=== PATIENT | female | born 1995 | race Caucasian/White ===

== ENCOUNTER 2018-11-24 15:24 | Outpatient (CLI) | payer SELFPAY ==
[~2018-11-24] VITALS: Ht 165.1 cm; Wt 79.4 kg
[2018-11-24 16:00] VITALS: BP 117/70; Ht 165.1 cm; Wt 79.4 kg
[2018-11-24] MEDS ORDERED: PROM-110 PO (16:46)
[2018-11-24 17:34] LABS: PLATELET COUNT, AUTOMATED 254 K/uL (150-450)
[2018-11-24] MEDS ORDERED: ONDANSETRON 4 MG ODT TABDP SL ONE (17:40)
[2018-11-24] MEDS: LR(*) 1000 ML BAG 1,000 ML IV PRN ×2 (17:52→18:31)
--- NOTE | 2018-11-24 17:54 | History & Physical ---
History of Present Illness Age of Patient: 23 : 3 Para or TPAL: 2 Estimated Gestational Age: 29.5 History of Present Illness Pt is a 23 year old here today for complaints of nausea and vomiting x 2 weeks. Her care has been in [place], but she said that they said that nothing was wrong with her and she disagrees with them. She also reports that she went to [place] to the ER 2 days ago and she was sent to the L&D unit for evaluation. They checked her cervical length which was apparently good, and gave her IVF and Phenergan. Her sister and fiance are with her. Her other 2 kids are in foster care. She recently had her glucose test at 28wk and she states she does not have GDM. She says that if she eats small meals she does not vomit, only when she eats large meals. She reports good FM, no VB or LOF, except on she had a gush of fluid in the shower and no continued leaking. She was checked in clinic with amnisure and it was negative. She denies JOE, vision changes, or RUQ pain. She complains of pelvic pressure and discomfort as well as lower back pain, but no urinary symptoms or vaginitis symptoms. Since she has been here she has not felt nauseous or vomited. She has peed 3 times. She had diarrhea once yesterday, but none since and no constipation. She denies fevers and chills and no recent exposure to sick persons. History Group B Strep Screen: Unknown Allergies: Coded Allergies: carbamazepine (Verified Allergy, Intermediate, RASH, 11/24/18) phenytoin (Verified Allergy, Intermediate, RASH, 11/24/18) menthol (Verified Allergy, Mild, RASH, 11/24/18) divalproex sodium (Verified Allergy, Unknown, UNKNOWN, 11/24/18) Social History: Denies Tobacoo, ETOH and illict drugs including marijuana Med Rec Home Meds Active Scripts Ranitidine Hcl (ZANTAC) 150 Mg Tablet, 150 MG PO QDAY for Nausea, #30 TAB 0 Refills Prov:KARONYESENIA [facility] 11/24/18 Reported Medications Promethazine Hcl (PROMETHAZINE HCL) 25 Mg Tablet, 12.5 MG PO Q6H PRN for NAUSEA/VOMITING, TAB 11/24/18 Review of Systems Constitutional: No Fever, No Chills Eyes: No Vision Change Cardiovascular: No Chest Pain, No Palpitations Respiratory: No Shortness of Breath Gastrointestinal: Nausea, Vomiting, Diarrhea (once yesterday ); No Constipation, No Abdominal Pain Genitourinary: No Dysuria Musculoskeletal: Pain (pelvic pain) Psychiatric: No Depression, No Anxiety Exam General Exam Vital Signs Vital Signs Date Time Temp Pulse Resp B/P (MAP) Pulse Ox O2 Delivery O2 Flow Rate FiO2 11/24/18 16:00 98.4 110 18 117/70 (86) 94 General Apperance: Alert/Awake/No Acute Distress Neuro: No Gross deficits Eyes: Normal Extraocular Movement & Vison ENT: Normal Abdomen: Gravid - Non-Tender, RUQ Non-Tender : Normal; No CVA Tenderness Musculoskeletal: No Weakness/Pain Integumentary: Skin Intact without Lesions or Rash Psychological: Alert & Oriented X3, Appropriate Mood & Affect (poor eye contact) Fetus Feeling Movement?: Yes Heart Tone Variabilty: Moderate FHT Accelerations: 15X15 FHT Decelerations: None FHT Category: I Medical Decision Making Data Points Result Diagram: 11/24/18 1722 11/24/18 172 Assessment and Plan Problems: (1) Nausea and vomiting in Status: Acute Assessment & Plan: Assessment/Plan: HILDA is a 23 y.o. at 29w5d wks with an Estimated Date of Delivery: 02/05/19 d ated by first trimester US, seen in [place] for PNC Labor state: Not in labor, no contractions present. well-being: Reactive and reassuring NST. NST before discharge Maternal well-being: VSS, normotensive, afebrile, membranes presumed intact. Nausea and vomiting: * Zofran and 2 L IVF. Will plan to send pt home on a bland diet, plan to start on Zantac 150mg QD, and encouraged small frequent meals * Urine sent: clean * Send labs CBC, CMP, TSH, amylase, lipase WNL, protein low so encouraged to increase her protein intake Pain Management: mild and tolerable, encouraged Tylenol if needed and can use Ex cedrin PRN. Gave a maternity support belt for comfort and instructed on use c/b: * Anemia- per pt report, but not on iron supplements. Encouraged iron rich foods Anticipate N/V will subside and pt will be discharged home. RTC in [place] for regularly scheduled OB visit on 12/02 YESENIA BRANTLEY CNM Nov 24, 2018 17:54
[2018-11-24] MEDS ORDERED: FAMOTIDINE(*) 20MG/50ML PREMIX 50 ML IVPB ONE (18:05)
[2018-11-24] MEDS ORDERED: RANI-366 PO (18:16)
--- NOTE | 2018-11-24 18:21 | OB/GYN Discharge Summary ---
Discharge Summary Reason for Hosp/Final Diag: (1) Nausea and vomiting in Status: Acute Hospital Course & Plan: Assessment/Plan: HILDA is a 23 y.o. at 29w5d wks with an Estimated Date of Delivery: 02/05/19 dated by first trimester US, seen in [place] for PNC Labor state: Not in labor, no contractions present. well-being: Reactive and reassuring NST. NST before discharge Maternal well-being: VSS, normotensive, afebrile, membranes presumed intact. Nausea and vomiting: * Zofran and 2 L IVF. Will plan to send pt home on a bland diet, plan to start on Zantac 150mg QD, and encouraged small frequent meals * Urine sent: clean * Send labs CBC, CMP, TSH, amylase, lipase WNL, protein low so encouraged to increase her protein intake Pain Management: mild and tolerable, encouraged Tylenol if needed and can use Excedrin PRN. Gave a maternity support belt for comfort and instructed on use c/b: * Anemia- per pt report, but not on iron supplements. Encouraged iron rich foods Anticipate N/V will subside and pt will be discharged home. RTC in [place] for regularly scheduled OB visit on 12/02 Vital Signs Vital Signs Date Time Temp Pulse Resp B/P (MAP) Pulse Ox O2 Delivery O2 Flow Rate FiO2 11/24/18 16:00 98.4 110 18 117/70 (86) 94 Weight (Pounds): 175 Result Diagram: 11/24/18 1722 11/24/18 1722 Condition: Improved Discharge: Home Home Meds Active Scripts Ranitidine Hcl (ZANTAC) 150 Mg Tablet, 150 MG PO QDAY for Nausea, #30 TAB 0 Refills Prov:YESENIA BRANTLEY CNM 11/24/18 Reported Medications Promethazine Hcl (PROMETHAZINE HCL) 25 Mg Tablet, 12.5 MG PO Q6H PRN for NAUSEA/VOMITING, TAB 11/24/18 Follow up Referrals: [facility] @ [place] Plan Checker Appointment Date: Dec 02, 2018 Discharge Diet: As Tolerates (bland diet, increase protein intake, small frequent meals) Discharge Activity: As Tolerates Special Instructions: Take Zantac once a day and then use TUMS before meals YESENIA BRANTLEY CNM Nov 24, 2018 18:21
== END 2018-11-25 18:21 | disposition home or self-care (01) ==
LOC: OB 15:24 → UNDOADMOB 15:24 → OB 15:24 → L&D 15:24 → UNDODISOB 18:15 → L&D 11-25 18:21 → EDSTATUS 11-26 14:29
PROVIDERS: ATTEND Student in an Organized Health Care Education/Training Program
DX: O21.2 Late vomiting of pregnancy (principal); Z3A.29 29 weeks gestation of pregnancy; M54.5 Low back pain; R10.2 Pelvic and perineal pain; O99.013 Anemia complicating pregnancy, third trimester
CPT/HCPCS: 36415; 81001; 82150; 83690; 84443; 85025; 99213; J7120; 82040; 82247; 82310; 82374; 82435; 82565; 82947; 84075; 84132; 84155; 84295; 84450; 84460; 84520; G0378; G0379